=== PATIENT | male | born 1975 | race Caucasian/White ===

== ENCOUNTER 2018-08-15 07:05 | Emergency (ER) | payer OTHER ==
[~2018-08-15] VITALS: Ht 182.9 cm; Wt 93.0 kg
[2018-08-15 07:10] VITALS: BP 135/97
--- NOTE | 2018-08-15 07:13 | NUR ---
PT TAKEN TO BED 8
--- NOTE | 2018-08-15 07:26 | NUR ---
Dr. Kaur evaluating patient at bedside.
--- NOTE | 2018-08-15 07:29 | NUR ---
PT. BIB SELF, C/O OF NASAL CONGESTION ,PRESSURE, AND COUGH SINCE TUESDAY. PATIENT STATES PLEURETIC PAIN UPON COUGHING. HX: HTN RX: LISINOPRIL 25MG, HCTZ 10MG, AND OTC FLU MEDICATIONS
[2018-08-15 07:39] VITALS: BP 135/97
--- NOTE | 2018-08-15 07:39 | NUR ---
Patient discharged with v/s stable. Written and verbal after care instructions given and explained. Patient alert, oriented and verbalized understanding of instructions. Ambulatory with steady gait. All questions addressed prior to discharge. ID band removed. Patient advised to follow up with PMD. Rx of Claritin- D, Flonase, Tessalon given. Patient educated on indication of medication including possible reaction and side effects. Opportunity to ask questions provided and answered.
== END 2018-08-15 07:39 | disposition home or self-care (01) ==
LOC: MED 07:05
DX: J06.9 Acute upper respiratory infection, unspecified (principal); R03.0 Elevated blood-pressure reading, without diagnosis of hypertension; Z88.5 Allergy status to narcotic agent; Z90.49 Acquired absence of other specified parts of digestive tract
CPT/HCPCS: 99283